=== PATIENT | female | born 1995 | race Caucasian/White ===

== ENCOUNTER 2021-10-04 17:38 | Emergency (ER) | payer OTHER ==
[2021-10-04] MEDS ORDERED: CYCLOBENZAPRINE10 MG PO (21:06)
== END 2021-10-04 21:23 | disposition home or self-care (01) ==
LOC: FER 17:38
DX: S70.12XA Contusion of left thigh, initial encounter (principal); S50.312A Abrasion of left elbow, initial encounter; S80.212A Abrasion, left knee, initial encounter; V49.9XXA Car occupant (driver) (passenger) injured in unspecified traffic accident, initial encounter
CPT/HCPCS: 70450; 71260; 72125; 73080; 73564; 84703; Q9967